=== PATIENT | male | born 1990 | race Caucasian/White ===

== ENCOUNTER 2025-07-02 21:59 | Emergency (ER) | payer SELFPAY ==
[~2025-07-02] VITALS: Ht 175.3 cm; Wt 82.0 kg
[2025-07-02 22:31] VITALS: TEMP 36.8; O2SAT 98
[2025-07-03] MEDS: SODIUM CHLORIDE 0.9% 1,000 ML IV ONE (00:16)
[2025-07-03 00:31] LABS: BASOPHILS % 0.6 % (0.0-2.0); EOSINOPHILS % 0.2 % (0.0-5.0); HEMATOCRIT. 44.3 % (42.0-52.0); HEMOGLOBIN. 15.1 g/dL (14.0-18.0); LYMPHOCYTES % 15.2 % (20.0-50.0); MEAN PLATELET VOLUME 8.5 fl (7.4-10.4); MONOCYTES % 2.9 % (2.0-8.0); NEUTROPHILS % 81.1 % (40.0-76.0); PLATELET 243 x1000/uL (130-400); RED BLOOD CELL COUNT 5.31 mill/uL (4.7-6.1); RED CELL DISTRIBUTION WIDTH 13.0 % (11.6-14.6)
[2025-07-03 00:44] LABS: CREATININE 0.8 mg/dL (0.6-1.3); UREA NITROGEN BLOOD 16 mg/dL (9-23)
[2025-07-03 00:45] LABS: ETHANOL BLOOD 276 mg/dL (<10)
[2025-07-03 02:33] VITALS: BP 110/57; PULSE 91; RESP 18; O2SAT 98
== END 2025-07-03 02:37 | disposition home or self-care (01) ==
LOC: ER 21:59
DX: T51.0X1A Toxic effect of ethanol, accidental (unintentional), initial encounter (principal); G92.9 Unspecified toxic encephalopathy; Y92.89 Other specified places as the place of occurrence of the external cause
CPT/HCPCS: 36415; 99283; 80048; 80320; 85025; 96360; 96361; J7030; Z7610 ×2; G0480